=== PATIENT | female | born 1950 | race Caucasian/White ===

== ENCOUNTER 2016-06-15 11:21 | Outpatient (CLI) | payer MEDICARE, OTHER ==
[~2016-06-15] VITALS: Ht 157.5 cm; Wt 104.1 kg
--- NOTE | ~2016-06-15 | HEMODYNAMI ---
PATIENT:CAYDEN LEE MEDICAL RECORD: [id number] : 46 LOCATION:[facility] ADMISSION DATE: 06/15/16 Generatedon:06/15/201614:18 Patient name: CAYDEN LEE Patient #: [id number] SSN: D OB: 1950 Date of study: 06/15/2016 Page: Of Hemodynamic Procedure Report Patient Data Patient Demographics Procedure consent was obtained First Name: CAYDEN Gender: Female Last Name: JESUS : 1950 Middle Initial: M Age: 66 year(s) Patient #: [id number] Race: Unknown Additional ID: [id number] Contact details Address: [address] [place] [address] State: [place] City: [facility] Zip code: [address] Past Medical History Allergies: No known allergies Admission Admission Data Admission Date: 06/15/2016 Admission Time: 11:21 Lab Results Lab Result Date: 06/15/2016 Lab Result Time: 0:00 CBC Name Units Result Min Max Hemoglobin g/dl 14.2 --(*---)-- 13.5 17.5 Procedure Procedure Types Cath Procedure Diagnostic Procedure PPM/ICD PPM Dual Implant Miscellaneous Procedures Moderate Sedation up to 45 minutes Procedure Description Procedure Date Procedure Date: 06/15/2016 Procedure Start Time: 13:36 Procedure End Time: 14:16 Procedure Staff Name Function Zack Huff MD Performing Physician Cortez Koehler MD Assisting physician Richelle Cruz RN Nurse Rudy Silverman RT Monitor Manolo Segundo RT Scrub Procedure Data Cath Procedure Fluoroscopy Diagnostic fluoroscopy Total fluoroscopy Time: 5 time: 5 min min Diagnostic fluoroscopy Total fluoroscopy dose: dose: 112.72 mGy 112.72 mGy Procedure Complications No complications Procedure Medications Medication Administration Route Dosage Lidocaine 1% with added to field 20 ml Epi Bupivacaine 0.5% added to field 20 ml Ancef Irrigation added to field 1 g (1gm/500ml NS) Ancef (1Gm/50ml NS) I.V.P.B 1 g Versed I.V. 1 mg Fentanyl I.V. 50 mcg Versed I.V. 0.5 mg Fentanyl I.V. 25 mcg Versed I.V. 0.5 mg Fentanyl I.V. 25 mcg Fentanyl I.V. 25 mcg Fentanyl I.V. 25 mcg Hemodynamics Rest HGB: 14.2 (g/dl) Heart Rate: 86 (bpm) Snapshots Pre Cath Intra NCS Post Cath Vital Signs Time Heart Resp SPO2 NIBP (mmHg) Rhythm Pain Sedation Rate (ipm) (%) Status Level (bpm) 13:07:00 75 17 99 187/101(148) NSR 0 (11) 10(A) , No pain 13:26:25 72 16 100 192/93(140) NSR 0 (11) 10(A) , No pain 13:30:49 70 16 96 168/91(134) NSR 0 (11) 10(A) , No pain 13:35:10 72 15 96 174/93(128) NSR 0 (11) 10(A) , No pain 13:39:30 98 16 96 168/85(124) NSR 0 (11) 10(A) , No pain 13:43:52 76 14 96 161/82(129) NSR 0 (11) 10(A) , No pain 13:48:04 108 16 95 139/88(111) NSR 0 (11) 10(A) , No pain 13:52:18 83 16 95 151/81(113) NSR 0 (11) 10(A) , No pain 13:56:38 69 16 95 151/78(115) NSR 0 (11) 10(A) , No pain 14:00:56 79 16 96 163/81(118) NSR 0 (11) 10(A) , No pain 14:05:14 78 15 96 163/83(119) NSR 0 (11) 10(A) , No pain 14:10:13 79 15 92 Measuring NSR 0 (11) 10(A) , No pain 14:10:21 79 15 92 160/81(119) NSR 0 (11) 10(A) , No pain 14:14:39 79 16 94 163/83(126) NSR 0 (11) 10(A) , No pain Medications Time Medication Route Dose Verified Delivered Reason Notes Effectiv eness by by 13:00:00 Ancef I.V.P.B 1 g Yarsani Richelle Per (1Gm/50ml Rodo Cruz RN physician NS) 13:03:11 Lidocaine added 20 ml Yarsani Yarsani used for 1% with Epi to Rodo Koehler MD procedure field 13:03:32 Bupivacaine added 20 ml Yarsani Yarsani used for 0.5% to Rodo Koehler MD procedure field 13:03:48 Ancef added 1 g Yarsani Yarsani used for Irrigation to Rodo Koehler MD procedure (1gm/500ml field NS) 13:25:10 Versed I.V. 1 mg Yarsani Richelle for Rodo Cruz RN sedation 13:25:18 Fentanyl I.V. 50 Yarsani Richelle for mcg Rodo Cruz RN sedation 13:30:51 Versed I.V. 0.5 Yarsani Richelle for mg Rodo Cruz RN sedation 13:30:53 Fentanyl I.V. 25 Yarsani Richelle for mcg Rodo Cruz RN sedation 13:40:02 Versed I.V. 0.5 Yarsani Richelle for mg Rodo Cruz RN sedation 13:40:09 Fentanyl I.V. 25 Yarsani Richelle for mcg Rodo Cruz RN sedation 13:43:05 Fentanyl I.V. 25 Yarsani Richelle for mcg Rodo Cruz RN sedation 13:48:14 Fentanyl I.V. 25 Yarsani Richelle for mcg Rodo Cruz RN sedation Procedure Log Time Note 12:30:39 Manolo MATTA(R) sent for patient. Start room use. 12:56:51 Time tracking: Regular hours 12:56:55 Plan of Care:Hemodynamics will remain stable., Cardiac rhythm will remain stable., Comfort level will be maintained., Respiratory function will remain adequate., Patient/ family verbilizes understanding of procedure., Procedure tolerated without complication., Recovers from procedure without complications.. 12:57:01 Patient received from Pre/Post Procedure Room to CCL 3 Alert and oriented. Tansferred to table in Supine position. 12:57:02 Warm blankets applied, and tamie hugger turned on for patient comfort. 12:57:03 Correct patient and procedure confirmed by team. 12:57:04 Signed procedure consent form obtained from patient. 12:57:05 ECG and BP/O2 sat monitors applied to patient. 13:00:00 Ancef (1Gm/50ml NS) 1 g I.V.P.B was administered by Richelle Cruz RN; Per physician; 13:03:11 Lidocaine 1% with Epi 20 ml added to field was administered by Cortez Koehler MD; used for procedure; 13:03:32 Bupivacaine 0.5% 20 ml added to field was administered by Cortez Koehler MD; used for procedure; 13:03:48 Ancef Irrigation (1gm/500ml NS) 1 g added to field was administered by Cortez Koehler MD; used for procedure; 13:04:06 Vital chart was started 13:11:02 Baseline sample Acquired. 13:11:04 Rhythm: sinus rhythm 13:11:05 Full Disclosure recording started 13:11:25 blood pressure stopped due to IV exchange 13:11:40 H&P Date Dictated: 06/08/2016 Within 30 days and on chart., H&P Addendum completed by physician on day of procedure. (MUST COMPLETE FOR ALL OUTPATIENTS). 13:11:41 Pre-procedure instructions explained to patient. 13:11:42 Pre-op teaching completed and patient verbalized understanding. 13:11:43 Family in waiting room. 13:11:45 Patient NPO since Midnight. 13:11:51 Patient allergic to No known allergies 13:11:53 Is the patient allergic to Iodine/contrast media? No. 13:11:58 Is patient on blood thinner?No 13:12:00 Patient diabetic? No. 13:12:00 ----Pre-sedation anethsthesia assessment.---- 13:12:03 Previous problem with sedation/anesthesia? No ? 13:12:04 Snore? Yes 13:12:06 Sleep apnea? Yes 13:12:08 Deviated septum? No 13:12:09 Opens mouth fully? Yes 13:12:11 Sticks out tongue? Yes 13:12:32 Airway obstruction? Yes COPD 13:12:35 Dentures? No ? 13:12:41 Patient pain scale 0/10 ?. 13:12:48 IV patent on arrival in left hand with 0.9% NaCl at 10ml/hr. 13:13:05 LEFT HAND IV STOPPED. INFILTRATED 13:13:16 Lab Result : Hemoglobin 14.2 g/dl 13:13:20 Lab results completed and on chart. 13:13:28 Left chest area was prepped with chlora-prep and draped in sterile fashion 13:13:29 Alarms reviewed by R. N. 13:13:29 Sharps counted by scrub and verified by R.N. 13:15:52 Use device set Pacemaker Set 13:15:56 Immobilizer Extra Large opened to sterile field. 13:16:04 5.0 Monocryl PS2 [id number] opened to sterile field. 13:16:05 3.0 Vicryl Single Pack [id number] opened to sterile field. 13:16:06 3.0 Vicryl Multipack [id number] opened to sterile field. 13:16:07 Mepilex Dressing opened to sterile field. 13:16:09 Medtronic 4074-52 PPM Lead opened to sterile field. 13:16:10 Medtronic 4574-45 PPM Lead opened to sterile field. 13:16:10 Medtronic Adapta PPM Dual Generator opened to sterile field. 13:21:53 IV started by Richelle Cruz RN inright antecubital with a 22 gauge IV catheter with 0.9% NaCl at 10ml/hr. 13:21:54 --------ALL STOP TIME OUT------ 13:21:55 Final Timeout: patient, procedure, and site verified with staff and physician. All members of the team are in agreement. 13:21:59 Left chest site verified by team. 13:22:05 Physical assessment completed. ASA score P 2 - A patient with mild systemic disease as per Zack Huff MD. 13:22:09 Sedation plan: IV Moderate Sedation Versed, Fentanyl 13:25:10 Versed 1 mg I.V. was administered by Richelle Cruz RN; for sedation; 13:25:18 Fentanyl 50 mcg I.V. was administered by Richelle Cruz RN; for sedation; 13:30:51 Versed 0.5 mg I.V. was administered by Richelle Cruz RN; for sedation; 13:30:53 Fentanyl 25 mcg I.V. was administered by Richelle Cruz RN; for sedation; 13:36:32 Procedure started. 13:36:53 Local anesthetic to Chest area with Lidocaine 1% w/epi and Bupivacaine 0.5% by Cortez Koehler MD.INITIAL ACCESS ONLY 13:37:06 Medtronic patient service representative IDALIA MALIK present for procedure. 13:37:45 Pre sharps counted by scrub and verified by RN: Sutures: 10 Sponges: 5 Stick needles: 2 Skin needles: 2 Blade: 1 Cautery: 1 13:38:53 Grounding pad site Left thigh. 13:38:54 Grounding pad site free from injury. 13:39:00 Lidocaine 1% w/epi and Bupivacaine 0.5% to left subclavicular area by Cortez Koehler MD. 13:39:03 Incision made to left subclavicular area. 13:39:05 Generator pocket made/opened. 13:40:02 Versed 0.5 mg I.V. was administered by Richelle Cruz RN; for sedation; 13:40:09 Fentanyl 25 mcg I.V. was administered by Richelle Cruz RN; for sedation; 13:43:05 Fentanyl 25 mcg I.V. was administered by Richelle Cruz RN; for sedation; 13:47:28 Left subclavian vein accessed with 7Fr Safe Sheath. 13:47:31 Left subclavian vein accessed with 9Fr Safe Sheath. 13:47:36 Ventricular lead inserted and advanced. 13:47:41 Ventricular lead positioned. 13:47:46 Ventricular lead tested. 13:47:56 Atrial lead inserted and advanced. 13:47:58 Atrial lead positioned. 13:48:01 Atrial lead tested. 13:48:03 Peel-a-way sheath was split and removed. 13:48:05 Peel-a-way sheath was split and removed. 13:48:14 Fentanyl 25 mcg I.V. was administered by Richelle Cruz RN; for sedation; 14:01:05 Ventricular lead attachment was completed with 3-0 vicryl. 14:01:11 Atrial lead attachment was completed with 3-0 vicryl. 14:01:33 PPM Dual was attached to lead(s) and inserted into pocket. 14:01:34 Generator was sutured in place with 3-0 vicryl. 14:01:35 Device pocket was irrigated with Ancef. 14:01:41 Subcutaneous closure was completed with 3-0 vicryl plus. 14:01:45 Skin closure was completed with 5-0 monocryl. 14:05:23 Parameters-- Generator: Mode: DUAL. Lower Rate: 60bpm. Upper Rate: 150bpm. 14:06:05 Parameters--Ventricular P/R Wave: 13.7mV. Current: 0.1mA; Threshold: 0.3V; Impedence: 1082OHMS. 14:07:23 Parameters--Atrial P/R Wave: 3.9mV. Current: 0.4mA; Threshold: 0.3V; Impedence: 802OHMS. 14:07:31 Lt Chest incision was dressed with Mepilex dressing. 14:07:38 Procedure ended.(Physican Out) 14:08:05 Fluoroscopy time 05.00 minutes. 14:08:20 Flurop Dose total: 112.72 14:08:20 Fluoroscopy dose: 112.72 mGy 14:11:22 Sharps counted by scrub and verified by R.N. 14:12:44 Insertion/operative site no bleeding no hematoma. 14:12:50 Post-op/insertion site Left Chest area dressed using a Mepilex dressing. 14:12:59 Post Chest area:stable 14:13:09 Post procedure rhythm: sinus tachycardia 14:13:11 Post procedure instruction explained to patient.Patient verbalizes understanding. 14:13:33 Procedure type changed to Cath procedure, Diagnostic procedure, PPM/ICD, PPM Dual Implant, Miscellaneous Procedures, Moderate Sedation up to 45 minutes 14:13:37 Procedure and supply charges have been captured, reviewed, submitted and are correct. 14:16:08 Medline Cath Pack opened to sterile field. 14:16:19 Procedure Complication : No complications 14:16:21 Vital chart was stopped 14:16:21 See physician's report for complete and final results. 14:16:23 Report given to PCU. 14:16:26 Patient transfered to PCU with Bed. 14:16:27 Procedure ended. 14:16:27 Full Disclosure recording stopped 14:16:30 End room use (Document Last) Device Usage Item Name Manufacture Quantity Catalog Hospital Part Current Minimal L ot# / Number Charge Number Stock Stock Serial# Code Immobilizer Cardinal 1 [id number] 5 Extra Large Health 5.0 Ethicon 1 [id number] [id number] [id number] 5 Monocryl PS2 Y495G 3.0 Vicryl Ethicon 1 [id number] 248943 968832 [id number] 5 Single Pack [id number] 3.0 Vicryl Ethicon 1 [id number] 829021 355724 783486 5 Multipack [id number] Mepilex Cardinal 1 022218 137109 [id number] [id number] 5 Dressing Health Medtronic Medtronic 1 4074-52 453973 090176 5 4074-52 PPM Lead Medtronic Medtronic 1 4574-45 654412 608851 5 4574-45 PPM Lead Medtronic Medtronic 1 [id number] 619132 926140 5 Adapta PPM Dual Generator Medline Cardinal 1 [id number] 158435 54254 [id number] 5 Cath Pack Health Signature Audit Sheridan Stage Time Signature Unsigned Intra-Procedure 06/15/2016 Rudy Silverman 2:18:53 PM RT(R) Signatures Monitor : Rudy Silverman RT Signature : Date : Time : [facility] [place] [address]
[2016-06-15] MEDS ORDERED: ZOCOR40 MG PO (11:34)
[2016-06-15] MEDS ORDERED: GLUCOPHAGE500 MG PO (11:35)
[2016-06-15] MEDS ORDERED: AMITRIPTYLINE H50 MG PO (11:35)
[2016-06-15] MEDS ORDERED: BAYER CHEWABLE81 MG PO (11:36)
[2016-06-15] MEDS ORDERED: CALCIUM 600+D T1 TA1 PO (11:36)
[2016-06-15] MEDS ORDERED: ZEGERID 20 MG C1 CAP PO (11:36)
[2016-06-15] MEDS ORDERED: KRILL OIL 1,001 EAC1 PO (11:37)
[2016-06-15] MEDS ORDERED: CO Q-10200 MG PO (11:37)
[2016-06-15 11:38] VITALS: BP 180/88; BMI 42.0
[2016-06-15 12:32] LABS: HEMATOCRIT 43.3 % (36.0-48.0); HEMOGLOBIN 14.2 g/dL (12-16); MCH 30.6 pg (26.0-34.0); MCHC 32.8 g/dL (31.0-37.0); MCV 93.3 fL (80.0-100.0); MEAN PLATELET VOLUME 10.8 fL (7.4-10.4); RBC 4.64 10x6/uL (4.00-5.40); WBC 8.4 10x3/uL (4.8-10.8)
[2016-06-15 12:41] LABS: APTT 24.8 SECONDS (22.8-39.4)
[2016-06-15 12:42] LABS: INR 0.94 (0.85-1.17); PROTIME 12.5 SECONDS (11.6-15.0)
[2016-06-15 12:42] LABS: CALCIUM 9.1 mg/dL (8.5-10.1); CARBON DIOXIDE 25.1 mmol/L (21.0-32.0); CREATININE - SERUM 0.9 mg/dL (0.6-1.3); POTASSIUM - SERUM 4.1 mmol/L (3.5-5.1)
[2016-06-15 15:05] VITALS: BP 133/68; Ht 157.5 cm; Wt 104.1 kg
--- NOTE | 2016-06-15 15:26 | NUR ---
ARRIVED FROM [facility]ST[facility] PER POST PACEMAKER PROCEDURE. NO APPARENT DISTRESS. MONITOR SHOWS NSR @ 76.
--- NOTE | 2016-06-15 16:39 | NUR ---
UP TO BR MIRA WELL.
--- NOTE | 2016-06-15 18:00 | NUR ---
UP AMB IN ROOM WITH SLING. IV SL.
--- NOTE | 2016-06-15 19:00 | NUR ---
RECEIVED REPORT AND ASSUMED PT CARE FROM DAY SHIFT NURSE @ THIS TIME.
[2016-06-15 20:00] VITALS: BP 141/74
[2016-06-16] VITALS: BP 142/70
[2016-06-16 04:00] VITALS: BP 154/77
[2016-06-16 07:54] VITALS: BP 146/78
--- NOTE | 2016-06-16 08:44 | OP ---
PATIENT NAME: CAYDEN MADRID MEDICAL RECORD: [id number] :46 LOCATION:D.M2 D.7 ADMISSION DATE: SURGEON: MARY BETH PEREZ MD DATE OF OPERATION: 06/15/2016 PROCEDURE: Lead portion of permanent pacemaker placement. INDICATIONS: Sinus arrest, pauses greater than 4 seconds. SURGEON: Dr. Koehler. DESCRIPTION OF PROCEDURE: After left subclavian was cannulated via modified Seldinger technique, first under fluoroscopic guidance, I placed the RV lead in RV apex. After adequate thresholds and R waves were obtained, I then placed under fluoroscopic guidance the RV lead in the right atrial appendage without difficulty. After adequate thresholds and P were obtained, the leads were attached to appropriate poles of the generator. Pocket was closed by Dr. Koehler. IMPRESSION: Successful lead portion of permanent pacemaker placement on Mrs. Madird. COMPLICATIONS: None. ESTIMATED BLOOD LOSS: Minimal. DISPOSITION: To the floor, stable. TRANSINT:[id number] Voice Confirmation ID: [id number] DOCUMENT ID: [id number] MARY BETH PEREZ MD at 0844 CC: [id number] DICTATION DATE: 06/15/16 140 STUDIO DIRECTOR: 06/15/162048 [facility] [address] [id number]
--- NOTE | 2016-06-16 11:57 | NUR ---
DISCHARGE INSTRUCTIONS GIVEN. PATIENT UNDERSTAINDS AND VERBALIZES UNDERSTADING. TO CAR VIA
--- NOTE | 2016-06-22 14:52 | OP ---
PATIENT NAME: CAYDEN LEE MEDICAL RECORD: [id number] :46 LOCATION:D.CAT ADMISSION DATE: SURGEON: BARBARA LI MD DATE OF OPERATION: 06/15/2016 PREOPERATIVE DIAGNOSES: 1. Sick sinus syndrome. 2. Diabetes mellitus. 3. Chronic obstructive pulmonary disease. 4. Gastroesophageal reflux disease. POSTOPERATIVE DIAGNOSES: 1. Sick sinus syndrome. 2. Diabetes mellitus. 3. Chronic obstructive pulmonary disease. 4. Gastroesophageal reflux disease. PROCEDURE: Left subclavian vein pacemaker placement with fluoroscopic interpretation. SURGEON: Barbara Li MD. COSURGEON: Zack Huff MD. REPORT OF PROCEDURE: The patient's left chest was prepped and draped in sterile fashion. A total of 30 mL of 1% lidocaine with epinephrine was infused into the surrounding tissues. A skin incision was made in the lateral aspect of the left upper chest. A subcutaneous pouch was made overlying the pectoral fascia. The subclavian was accessed 2 separate times and guidewires were advanced with ease. Fluoro was used to note that the wires were in good position in the venous system. Over the wires, dilator trocar devices were placed. The wires and dilators were then removed and the [address] Huff positioned the leads and the heart correctly and after they were checked, then these leads were sutured into place with 0 Ti-Cron. The pacemaker was attached to the leads and the pacemaker was inserted into the subcutaneous pouch and sutured down with interrupted 0 Tycron. We irrigated out the wound with antibiotic solution and then closed the subcutaneous tissues with interrupted 3-0 Vicryls. The skin was closed with running subcutaneous 5-0 Monocryl and dressed appropriately. COMPLICATIONS: None. CONDITION: Stable. ANESTHESIA: Local MAC. BLOOD LOSS: Minimal. TRANSINT:[id number] Voice Confirmation ID: [id number] DOCUMENT ID: [id number] OPERATIVE REPORT [id number] CAYDEN LEE CHRISTIAN MD at 1452 CC: [id number] DICTATION DATE: 06/15/16 1415 REGULATORY SUBMISSIONS ASSOCIATE: 06/15/16 2100 DEP CLI 06/16/16 [place] [id number]
== END 2016-06-16 11:58 | disposition home or self-care (01) ==
LOC: D.CATH 11:21 → D.M2 14:22 → D.CATH 06-16 11:58
PROVIDERS: Internal Medicine Cardiovascular Disease
DX: I49.5 Sick sinus syndrome (principal); E11.9 Type 2 diabetes mellitus without complications; J44.9 Chronic obstructive pulmonary disease, unspecified; K21.9 Gastro-esophageal reflux disease without esophagitis

== ENCOUNTER 2016-08-09 10:24 | Emergency (ER) | payer MEDICARE, OTHER ==
[2016-06-15 15:05] VITALS: BMI 42.0
[~2016-08-09 10:24] MED LIST: AMITRIPTYLINE H50 MG PO; BAYER CHEWABLE81 MG PO; CALCIUM 600+D T1 TA1 PO; CO Q-10200 MG PO; GLUCOPHAGE500 MG PO; KRILL OIL 1,001 EAC1 PO; ZEGERID 20 MG C1 CAP PO; ZOCOR40 MG PO
[2016-08-09 11:37] LABS: BASOPHILS 0.5 % (0-2); EOSINOPHILS 0.6 % (0-7); HEMATOCRIT 43.2 % (36.0-48.0); HEMOGLOBIN 14.3 g/dL (12-16); IMMATURE GRANULOCYTES 0.2 % (0-5); LYMPHOCYTES 24.9 % (15-50); MCH 31.1 pg (26.0-34.0); MCHC 33.1 g/dL (31.0-37.0); MCV 93.9 fL (80.0-100.0); MEAN PLATELET VOLUME 9.9 fL (7.4-10.4); MONOCYTES 7.6 % (2-11); NEUTROPHILS 66.2 % (40-80); PLATELET COUNT 247 10x3/uL (130-400); RDW 12.8 % (11.5-14.5); WBC 8.6 10x3/uL (4.8-10.8)
[2016-08-09 11:45] LABS: APTT 24.4 SECONDS (22.8-39.4); INR 0.91 (0.85-1.17); PROTIME 12.1 SECONDS (11.6-15.0)
[2016-08-09 11:54] LABS: ALKALINE PHOSPHATASE 60 U/L (46-116); ALT (SGPT) 21 U/L (10-68); BILIRUBIN - TOTAL 0.75 mg/dL (0.2-1.3); CALC OSMOLALITY 283 mosm/kg (275-300); CALCIUM 9.1 mg/dL (8.5-10.1); CARBON DIOXIDE 24.1 mmol/L (21.0-32.0); CHLORIDE - SERUM 106 mmol/L (98-107); CREATININE - SERUM 0.9 mg/dL (0.6-1.3); GLUCOSE 109 mg/dL (74-106); POTASSIUM - SERUM 4.1 mmol/L (3.5-5.1); PROTEIN - SERUM 7.7 g/dL (6.4-8.2); SODIUM 141 mmol/L (136-145); UREA NITROGEN 17 mg/dL (7-18); eGFR NON AFRICAN AMERICAN 66 mL/min (90-120)
[2016-08-09 11:55] LABS: CREATINE KINASE 58 UL (21-215); MAGNESIUM - SERUM 1.9 mg/dL (1.8-2.4); TROPONIN-I < 0.017 ng/mL (0.000-0.060)
== END 2016-08-09 17:20 | disposition home or self-care (01) ==
LOC: D.ER 10:24
PROVIDERS: Emergency Medicine
DX: G51.0 Bell's palsy (principal); Z95.0 Presence of cardiac pacemaker; F32.9 Major depressive disorder, single episode, unspecified

== ENCOUNTER → 2017-04-11 07:54 | Outpatient (CLI) | payer MEDICARE, OTHER ==
[2016-06-15 15:05] VITALS: BMI 42.0
== END | disposition home or self-care (01) ==
LOC: D.RT 07:54
DX: R91.8 Other nonspecific abnormal finding of lung field (principal)

== ENCOUNTER → 2017-07-19 10:08 | Outpatient (CLI) | payer MEDICARE, OTHER ==
[2016-06-15 15:05] VITALS: BMI 42.0
== END | disposition home or self-care (01) ==
LOC: D.CT 07-18 11:30
DX: R91.1 Solitary pulmonary nodule (principal)

== ENCOUNTER → 2018-01-25 09:15 | Outpatient (CLI) | payer MEDICARE, OTHER ==
[2016-06-15 15:05] VITALS: BMI 42.0
== END | disposition home or self-care (01) ==
LOC: D.CT 09:15
DX: R91.8 Other nonspecific abnormal finding of lung field (principal)

== ENCOUNTER → 2019-01-19 10:07 | Outpatient (CLI) | payer MEDICARE, OTHER ==
[2016-06-15 15:05] VITALS: BMI 42.0
== END | disposition home or self-care (01) ==
LOC: D.CT 10:07
PROVIDERS: ATTEND Internal Medicine Pulmonary Disease
DX: R91.8 Other nonspecific abnormal finding of lung field (principal)